=== PATIENT | male | born 2005 | race Two or more races ===

== ENCOUNTER 2025-07-04 09:58 | Inpatient (IN) | payer MEDICAID, OTHER ==
[~2025-07-04] VITALS: Ht 175.3 cm; Wt 76.8 kg
--- NOTE | 2025-07-04 11:03 | ED.PDOC ---
GI ASSESSMENT HPI Comments 19 y.o male with PMHx of asthma, presents to the ED for a chief complain to diffused abdominal pain associated with nausea, vomiting and SOB that started 2 days ago. Patient reports pain is constant and has no alleviating factors. He is requesting an inhaler for SOB. No chest pain, fever, chills, diarrhea reported. He admits to using marijuana occasionally. Chief Complaint: Abdominal Pain Time Seen by MD: 10:47 Reviewed Notes: Nurses Notes, Medications, Allergies Allergies: Coded Allergies: NO KNOWN ALLERGIES (Unverified , 07/04/25) Information Source: Patient Mode of Arrival: Ambulatory Timing: Days (2) Duration: Since onset Quality: Aching Vomitus: Soft Stool: Normal Severity: Moderate Recent: None Recent Hx of: None Pain Location: Diffuse Modifying Factors: Nothing Associated sign and symptoms: Nausea, Vomiting, Abdominal Pain Past Medical History PAST MEDICAL HISTORY: Asthma Surgical History: Denies all surgeries Family History Family History: Reviewed,noncontributory to illness Social History Smoker: Non-Smoker Alcohol: Denies ETOH Use Drugs: Marijuana Lives In: Home Constitutional: denies: chills, diaphoresis, fatigue, fever, malaise, sweats, weakness, others EENTM: denies: blurred vision, double vision, ear bleeding, ear discharge, ear drainage, ear pain, ear ringing, eye pain, eye redness, hearing loss, mouth pain, mouth swelling, nasal discharge, nose bleeding, nose congestion, nose pain, photophobia, tearing, throat pain, throat swelling, voice changes, others Respiratory: reports: shortness of breath; denies: cough, hemoptysis, orthopnea, SOB at rest, SOB with excertion, stridor, wheezing, others Cardiovascular: denies: chest pain, dizzy spells, diaphoresis, Dyspnea on ex ertion, edema, irregular heart beat, left arm pain, lightheadedness, palpitations, PND, syncope, others Gastrointestinal: reports: abdominal pain, nausea, vomiting; denies: abdomen distended, blood streaked bowels, constipated, diarrhea, dysphagia, difficulty swallowing, hematemesis, melena, poor appetite, poor fluid intake, rectal bleeding, rectal pain, others Genitourinary: denies: burning, dysuria, flank pain, frequency, hematuria, incontinence, penile discharge, penile sore, pain, testicle pain, testicle swelling, urgency, others Neurological: denies: dizziness, fainting, headache, left sided numbness, left sided weakness, numbness, paresthesia, pre-existing deficit, right sided numbness, right sided weakness, seizure, speech problems, tingling, tremors, weakness, others Musculoskeletal: denies: back pain, gout, joint pain, joint swelling, muscle pain, muscle stiffness, neck pain, others Integumetry: denies: bruises, change in color, change in hair/nails, dryness, laceration, lesions, lumps, rash, wounds, others Allergic/Immunocompromised: denies: Difficulty Healing, Frequent Infections, Hives, Itching, others Hematologic/Lymphatic: denies: anemia, blood clots, easy bleeding, easy bruising, swollen glands, others Endocrine: denies: excessive hunger, excessive sweating, excessive thirst, excessive urination, flushing, intolerance to cold, intolerance to heat, unexplained weight gain, unexplained weight loss, others Psychiatric: denies: anxiety, bipolar disorder, depression, hopeless, panic disorder, schizophrenia, sleepless, suicidal, others All Other Systems: Reviewed and Negative Physical Exam General Appearance: Moderate Distress HEENT: Normal ENT Inspection, Pharynx Normal, TMs Normal Neck: Full Range of Motion, Non-Tender, Normal, Normal Inspection Respiratory: Chest Non-Tender, Lungs Clear, No Accessory Muscle Use, No Respiratory Distress, Normal Breath Sounds Cardiovascular: No Edema, No JVD, No Murmur, No Gallop, Normal Peripheral Pulses, Regular Rate/Rhythm Breast Exam: Deferred Gastrointestinal: No Organomegaly, Non Tender, No Pulsatile Mass, Normal Bowel Sounds, Soft Genitalia: Deferred Pelvic: Deferred Rectal: Deferred Extremities: No calf tenderness, Normal capillary refill, Normal inspection, Normal range of motion, Non-tender, No pedal edema Musculoskeletal : Apperance: Normal Neurologic: Alert, senior informatica developer II-XII nml as Tested, No Motor Deficits, Normal Affect, Normal Mood, No Sensory Deficits Cerebellar Function: Normal Reflexes: Normal Skin: Dry, Normal Color, Warm Peripheral Pulses: 3+ Radial (R), 3+ Radial (L) Lymphatic: No Adenopathy Was a procedure done? Was a procedure done?: No GI differential Dx Differential Diagnosis: Constipation, Diverticular disease, Esophagitis, Gastritis/PUD, Gastroenteritis, Dehydration, Electrolyte Imbalance, Viral X-Ray, Labs, Meds, VS Vital Signs Date Time Temp Pulse Resp B/P (MAP) Pulse Ox O2 Delivery O2 Flow Rate FiO2 07/04/25 11:13 61 18 100 Room Air 07/04/25 11:13 98.3 62 18 155/88 (110) 98 98.3 07/04/25 09:59 98.0 62 16 151/98 99 98.0 Lab Test 07/04/25 11:20 Range/Units White Blood Count 11.8 H 4.4-10.8 10^3/uL Red Blood Count 5.20 4.5-5.90 10^6/uL Hemoglobin 16.0 13.5-17.5 g/dL Hematocrit 47.0 41.0-53.0 % Mean Corpuscular Volume 90.5 80.0-100.0 fL Mean Corpuscular Hemoglobin 30.7 28.0-32.0 pg Mean Corpuscular Hemoglobin Concent 33.9 32.0-36.0 g/dL Red Cell Distribution Width 13.8 11.8-14.3 % Platelet Count 319 140-450 10^3/uL Mean Platelet Volume 8.7 6.9-10.8 fL Neutrophils (%) (Auto) 86.1 H 37.0-80.0 % Lymphocytes (%) (Auto) 5.3 L 10.0-50.0 % Monocytes (%) (Auto) 8.4 0.0-12.0 % Eosinophils (%) (Auto) 0.0 0.0-7.0 % Basophils (%) (Auto) 0.2 0.0-2.0 % Neutrophils # (Auto) 10.2 H 1.6-8.6 10 ^3/uL Lymphocytes # (Auto) 0.6 0.4-5.4 10 ^3/uL Monocytes # (Auto) 1.0 0-1.3 10 ^3/uL Eosinophils # (Auto) 0 0-0.8 10 ^3/uL Basophils # (Auto) 0 0-0.2 10 ^3/uL Nucleated Red Blood Cells 0.5 % Sodium Level 138 136-145 mmol/L Potassium Level 3.4 L 3.5-5.1 mmol/L Chloride Level 98 98-107 mmol/L Carbon Dioxide Level 26 20-31 mmol/L Anion Gap 14 5-15 Blood Urea Nitrogen 11 9-23 mg/dL Creatinine 1.07 0.700-1.30 mg/dL Glomerular Filtration Rate Calc 103 >90 mL/min BUN/Creatinine Ratio 10.3 10.0-20.0 Serum Glucose 116 H 74-106 mg/dL Calcium Level 10.9 H 8.7-10.4 mg/dL Patient alert. Complaining of abdominal pain. WBC elevated. Hemoglobin within normal limits. Vitals stable. Answering questions. Potassium is low. Calcium is high. Establish intravenous access. Was given fluids. CT scan of the abdomen reviewed does show colitis. Was given Rocephin. Was given Flagyl. Continue to monitor. Time of 1ST Reevaluation: 10:59 Reevaluation 1ST: Unchanged Patient Education/Counseling: Diagnosis, Treatment, Prognosis Family Education/Counseling: No Family Present SEPSIS Sepsis Screen Date sepsis recognized/suspect: Jul 04, 2025 Time Sepsis recognized/suspect: 958 Recent Procedure: No On Antibiotic Therapy: No Respiratory Rate >20: No Heart Rate >90: No Temp<36 C (96.8 F) or >38.3 C: No SBP <90 or MAP <65 mmHG: No New Acute Mental Status Change: No Is the patient on CPAP, BIPAP,: No Physician Orders Ct Ab Pel Wo Con-No Oral Or Iv (07/04/25 12:40) Vital Signs Date Time Temp Pulse Resp B/P (MAP) Pulse Ox O2 Delivery O2 Flow Rate FiO2 07/04/25 11:13 61 18 100 Room Air 07/04/25 11:13 98.3 62 18 155/88 (110) 98 98.3 07/04/25 09:59 98.0 62 16 151/98 99 98.0 Laboratory Tests Test 07/04/25 11:20 White Blood Count 11.8 10^3/uL (4.4-10.8) H Departure 1 Departure Time of Disposition: 12:48 Impression: Primary Impression: Hypokalemia Additional Impressions: Hypercalcemia Non-specific colitis Disposition: ADMITTED INPATIENT Admit to: Med Surg Condition: Guarded Critical Care Note Critical Care Time?: No Stability Stability form required: No I personally scribed for ANGELICA GUTHRIE MD ([email or web address]) on 07/04/25 at 11:03. Electronically submitted by Milagros Browning ([facility]). ANGELCIA GUTHRIE MD Jul 04, 2025 11:03
[2025-07-04 11:58] LABS: Hematocrit 47.0 % (41.0-53.0); Hemoglobin 16.0 g/dL (13.5-17.5); Mean Corpuscular Hemoglobin 30.7 pg (28.0-32.0); Mean Corpuscular Volume 90.5 fL (80.0-100.0); Nucleated Red Blood Cells % 0.5 %
[2025-07-04 12:03] LABS: Chloride 98 mmol/L (98-107); Sodium 138 mmol/L (136-145)
[2025-07-04 12:04] LABS: Anion Gap 14 (5-15); Carbon Dioxide 26 mmol/L (20-31)
[2025-07-04 12:10] LABS: BUN/Creatinine Ratio 10.3 (10.0-20.0); Blood Urea Nitrogen 11 mg/dL (9-23)
[2025-07-04 12:11] LABS: Calcium 10.9 mg/dL (8.7-10.4); Glucose 116 mg/dL (74-106); Potassium 3.4 mmol/L (3.5-5.1)
--- NOTE | 2025-07-04 13:51 | DVH ---
CLINICAL HISTORY: enteritis TECHNIQUE: CT of the abdomen and pelvis was performed without intravenous contrast. This exam was per formed according to our departmental dose optimization program. Up-to-date CT equipment and radiation dose reduction techniques are utilized as appropriate. 7.01 CTDI: 7.01 DLP: 373.71 WID: COMPARISON: None FINDINGS: Lower Thorax: Unremarkable. Liver and Biliary system: Unremarkable. Spleen: Unremarkable. Adrenal Glands and Kidneys: Unremarkable. Pancreas and Retroperitoneum: Unremarkable. Aorta and Major Vessels: Unremarkable. Bowel, Mesentery and Peritoneal space: Normal caliber small and large bowel. There is mild wall thic kening of the large bowel although it is underdistended. Normal appendix. No free air or fluid colle ction. Pelvis: Mild wall thickening of the urinary bladder. The prostate and seminal vesicles are grossly u nremarkable. No pelvic lymphadenopathy. Abdominal wall and Osseous Structures: Unremarkable. IMPRESSION: Mild wall thickening throughout the large bowel which may be in part due to underdistention versus mi ld infectious or inflammatory colitis.
[2025-07-04 14:16] VITALS: PULSE 80; RESP 19; O2SAT 97
[2025-07-04] MEDS: POTASSIUM EFFERVESENT TAB 25 MEQ PO ONE (14:16)
[2025-07-04] MEDS: ONDANSETRON HCL 4 MG/2 ML VIAL IV ONE (14:16)
[2025-07-04] MEDS: SODIUM CHLORIDE 0.9% 1,000 ML IV ONE (14:16)
[2025-07-04] MEDS: HYDROmorphone HCL 2 MG/ML VL/or syr IV ONE (14:17)
--- NOTE | 2025-07-04 16:10 | DVHHP2 ---
History of Present Illness History of Present Illness Patient is a 19-year-old male with no known past medical history came to the hospital with a chief complaint of intractable nausea and vomiting associated with abdominal pain for past two days. Patient had acute onset of abdominal pain two days ago, had at least 15 vomiting episode, vomitus is yellowish in color, food particles, not able to keep any food. As per patient he does not have bowel movement in last 7-10 days, he is suffering from constipation for many years, never seek medical attention for same reason. No any GI intervention done in past. Patient denying any other symptoms including chest pain, shortness of breath, fever, chills, motor or sensory deficits, any other symptoms. Past medical history: Constipation Surgical history: Denies Family history: Noncontributory Social history: Smokes weed, smokes vape. Denying any other recreational drug use. Allergies: Denies Home medication: None Review of Systems Constitutional: No: Fever, Chills, Sweats, Weakness, Malaise, Other ENT: No: Ear pain, Ear discharge, Nose pain, Nose discharge, Nose congestion, Mouth pain, Mouth swelling, Throat pain, Throat swelling, Other Respiratory: No: Cough, Dry, Shortness of breath, SOB with excertion, Wheezing, Hemoptysis, Pleuritic Pain, Sputum, Wheezing, Other Cardiovascular: No: Chest Pain, Palpitations, Orthopnea, Paroxysmal Noc. Dyspnea, Edema, Lt Headedness, Other Gastrointestinal: Nausea, Vomiting, Abdominal Pain Genitourinary: No Dysuria, No Frequency, No Incontinence, No Hematuria, No Retention, No Other Musculoskeletal: No: other, neck pain, shoulder pain, arm pain, back pain, hand pain, leg pain, foot pain Skin: No: Rash, Lesions, Jaundice, Bruising, Other Neurological: No: Weakness, Numbness, Incoordination, Change in speech, Confusion, Seizures, Other Allergies: Coded Allergies: NO KNOWN ALLERGIES (Unverified , 07/04/25) Exam Vital Signs Vital Signs Date Time Temp Pulse Resp B/P (MAP) Pulse Ox O2 Delivery O2 Flow Rate FiO2 07/04/25 15:05 56 17 115/46 (69) 97 07/04/25 14:16 Room Air* 0 21 07/04/25 14:16 98.4 98.4 Exam General Appearance: Cooperative. Well developed. Well nourished. NAD Head Exam: Normal inspection Neck Exam: Normal inspection. Non-tender. Normal alignment Pulmonary/Respiratory: Chest non-tender. Clear bilateral breath sounds Cardiovascular/Chest: Regular rate and rhythm. No murmurs. No JVD. Peripheral Pulses: 2+ Radial (R). 2+ Radial (L). 2+ Pedal (R). 2+ Pedal (L) Abdominal Exam: Normal bowel sounds. Soft. Nontender. No hepatospenomegaly. No masses Ankle Exam: Negative ankle edema Lower extremities: Negative lower extremity edema Neuro/Mental Status: A&O x4. Coherent Thoughts/Psych: Normal thought pattern. Appropriate mood and affect. Good judgement and insight Appearance: In no acute distress Skin Exam: Normal inspection. Normal color. Warm. Dry Labs/Xrays Labs Test 07/04/25 11:20 Range/Units White Blood Count 11.8 H 4.4-10.8 10^3/uL Red Blood Count 5.20 4.5-5.90 10^6/uL Hemoglobin 16.0 13.5-17.5 g/dL Hematocrit 47.0 41.0-53.0 % Mean Corpuscular Volume 90.5 80.0-100.0 fL Mean Corpuscular Hemoglobin 30.7 28.0-32.0 pg Mean Corpuscular Hemoglobin Concent 33.9 32.0-36.0 g/dL Red Cell Distribution Width 13.8 11.8-14.3 % Platelet Count 319 140-450 10^3/uL Mean Platelet Volume 8.7 6.9-10.8 fL Neutrophils (%) (Auto) 86.1 H 37.0-80.0 % Lymphocytes (%) (Auto) 5.3 L 10.0-50.0 % Monocytes (%) (Auto) 8.4 0.0-12.0 % Eosinophils (%) (Auto) 0.0 0.0-7.0 % Basophils (%) (Auto) 0.2 0.0-2.0 % Neutrophils # (Auto) 10.2 H 1.6-8.6 10 ^3/uL Lymphocytes # (Auto) 0.6 0.4-5.4 10 ^3/uL Monocytes # (Auto) 1.0 0-1.3 10 ^3/uL Eosinophils # (Auto) 0 0-0.8 10 ^3/uL Basophils # (Auto) 0 0-0.2 10 ^3/uL Nucleated Red Blood Cells 0.5 % Sodium Level 138 136-145 mmol/L Potassium Level 3.4 L 3.5-5.1 mmol/L Chloride Level 98 98-107 mmol/L Carbon Dioxide Level 26 20-31 mmol/L Anion Gap 14 5-15 Blood Urea Nitrogen 11 9-23 mg/dL Creatinine 1.07 0.700-1.30 mg/dL Glomerular Filtration Rate Calc 103 >90 mL/min BUN/Creatinine Ratio 10.3 10.0-20.0 Serum Glucose 116 H 74-106 mg/dL Calcium Level 10.9 H 8.7-10.4 mg/dL SEPSIS Sepsis Screen Date sepsis recognized/suspect: Jul 04, 2025 Time Sepsis recognized/suspect: 1415 Recent Procedure: No On Antibiotic Therapy: No Respiratory Rate >20: No Heart Rate >90: No Temp<36 C (96.8 F) or >38.3 C: No SBP <90 or MAP <65 mmHG: No New Acute Mental Status Change: No Is the patient on CPAP, BIPAP,: No Physician Orders Ct Ab Pel Wo Con-No Oral Or Iv (07/04/25 12:40) Urinalysis (07/04/25 14:03) Admit (07/04/25 16:06) Code Status (07/04/25 16:06) Vital Signs .PER UNIT PROTOCOL (07/04/25 16:06) Review Orders With Adm. (07/04/25 16:06) Metoclopramide Injection (Reglan Injecti (07/04/25 16:15) Notify Md Of Changes From Base (07/04/25 16:06) Advance Directive (07/04/25 16:06) Patient Condition (07/04/25 16:06) Allergies (07/04/25 16:06) Ondansetron Hcl (Zofran) (07/04/25 16:15) Drug Screen (07/04/25 16:06) Ceftriaxone Ivpb Rocephin (07/05/25 09:00) Metronidazole Ivpb Flagyl (07/04/25 22:00) D5w/Sod Chl 0.45% 1/2 Ns (07/04/25 16:15) Pantoprazole (Protonix) (07/05/25 10:00) Pantoprazole (Protonix) (07/04/25 16:15) Vital Signs Date Time Temp Pulse Resp B/P (MAP) Pulse Ox O2 Delivery O2 Flow Rate FiO2 07/04/25 15:05 56 17 115/46 (69) 97 07/04/25 15:05 56 17 115/46 07/04/25 14:17 80 19 119/65 07/04/25 14:16 80 19 97 Room Air* 0 21 07/04/25 14:16 98.4 80 19 119/65 (83) 97 98.4 07/04/25 11:13 61 18 100 Room Air 07/04/25 11:13 98.3 62 18 155/88 (110) 98 98.3 07/04/25 09:59 98.0 62 16 151/98 99 98.0 Laboratory Tests Test 07/04/25 11:20 White Blood Count 11.8 10^3/uL (4.4-10.8) H Medications Medications Dose Ordered Sig/Tyree Route Start Time Stop Time Status Last Admin Dose Admin Ceftriaxone Sodium 50 ml @ 100 mls/hr ONCE ONCE IV 07/04/25 14:15 07/04/25 14:44 DC 07/04/25 14:16 100 MLS/HR Hydromorphone HCl 1 mg ONCE ONCE IV 07/04/25 14:15 07/04/25 14:16 DC 07/04/25 14:17 1 MG Metronidazole 100 ml @ 100 mls/hr ONCE ONCE IV 07/04/25 14:15 07/04/25 15:14 DC 07/04/25 14:55 100 MLS/HR Ondansetron HCl 4 mg ONCE ONCE IV 07/04/25 14:15 07/04/25 14:16 DC 07/04/25 14:16 4 MG Potassium Bicarbonate 25 meq ONCE ONCE PO 07/04/25 13:00 07/04/25 13:01 DC 07/04/25 14:16 25 MEQ Sodium Chloride 1,000 ml @ 1,000 mls/hr Q1H ONCE IV 07/04/25 13:00 07/04/25 13:59 DC 07/04/25 14:16 1,000 MLS/HR Assessment/Plan Assessment/Plan Acute colitis Intractable nausea and vomiting due to above Intractable abdominal pain due to acute colitis Hypokalemia Elevated calcium likely due to severe dehydration Hyperglycemia Plan/recommendation -IV antibiotic with ceftriaxone, metronidazole -CT abdominal pelvis:Mild wall thickening throughout the large bowel which may be in part due to underdistention versus mild infectious or inflammatory colitis. -IV fluid with D5 half NS 125 mL/hour -p.r.n. ondansetron and metronidazole for nausea and vomiting -check liver function, IBD panel, urine drug screen. Continue to monitor electrolytes. -bowel regimen for constipation. Clear liquid diet. -PUD prophylaxis with Protonix Goals of care discussed greater than 24 minutes, full code status. Plan discussed with Dr. Singh Plan discussed with: Patient, Other My Orders Orders - CONNOR JARQUIN Procedure Category Date Status Time Admit ADMIT 07/04/25 Verified 16:06 Code Status CODE 07/04/25 Verified 16:06 Vital Signs [facility] 07/04/25 Verified 16:06 Review Orders With [facility] 07/04/25 Verified Adm. 16:06 Metoclopramide [facility] 07/04/25 Verified Injection (Reglan 16:15 Notify Md Of Changes [facility] 07/04/25 Verified From Base 16:06 Advance Directive [facility] 07/04/25 Verified 16:06 Patient Condition ORDERS 07/04/25 Verified 16:06 Allergies [facility] 07/04/25 Verified 16:06 Ondansetron Hcl [facility] 07/04/25 Verified (Zofran) 16:15 Drug Screen LAB 07/04/25 Verified 16:06 Ceftriaxone Ivpb [facility] 07/05/25 Verified Rocephin 09:00 Metronidazole Ivpb [facility] 07/04/25 Verified Flagyl 22:00 D5w/Sod Chl 0.45% 1/2 PHA 07/04/25 Verified NS 16:15 Pantoprazole PHA 07/05/25 Verified (Protonix) 10:00 Pantoprazole [facility] 07/04/25 Verified (Protonix) 16:15 Date of Service: Jul 04, 2025 Billing Provider: GLORIA SINGH MD Common Visit Codes: [id number] INP/OBS CARE (HIGH) Secondary Visit Codes: [id number] CARE PLAN 30 MINUTES CONNOR JARQUIN RESIDENT Jul 04, 2025 16:10
[2025-07-04 16:38] LABS: Urine Protein, UAD 1+ (Negative)
[2025-07-04 16:47] LABS: Cannabinoid Screen, Urine Pos (NEGATIVE); Opiate Scree,Urine Neg (NEGATIVE)
[2025-07-04 16:54] LABS: Amphetamine Screen, Urine Neg (NEGATIVE); Barbiturate Scree,Urine Neg (NEGATIVE); Benzodiazephine Screen, Urine Neg (NEGATIVE); Cocaine Screen, Urine Neg (NEGATIVE); Phencyclidine Screen, Urine Neg (NEGATIVE)
[2025-07-04 17:16] LABS: Alanine Aminotransferase 18.0 U/L (7-40); Alkaline Phosphatase 87.0 U/L (46-116); Bilirubin, Total 1.0 mg/dL (0.2-1.0)
[2025-07-04 17:17] VITALS: BP 108/40; PULSE 53; RESP 14; TEMP 98.3; O2SAT 99
[2025-07-04] MEDS: D5W/SOD CHL 0.45% 1,000 ML IV SCH (19:06)
[2025-07-04] MEDS: LACTULOSE 20Gm/30ML SOLN PO ONE (19:06)
[2025-07-04] MEDS: POTASSIUM CHL 20MEQ/100ML 100 ML IV ONE (19:06)
[2025-07-04] MEDS: PANTOPRAZOLE 40 MG/10 ML VIAL INJ IV ONE (19:07)
[2025-07-04 21:00] VITALS: BP 108/32; PULSE 78; RESP 16; TEMP 98.6; O2SAT 97
[2025-07-04] MEDS: DOCUSATE SOD 100 MG CAP PO SCH (21:42)
[2025-07-05] MEDS: ONDANSETRON HCL 4 MG/2 ML VIAL IV PRN (01:00)
[2025-07-05 01:03] VITALS: BP 109/51; PULSE 58; RESP 16; TEMP 98.7; O2SAT 100
[2025-07-05 05:00] VITALS: BP 112/61; PULSE 53; RESP 16; TEMP 98.2; O2SAT 99
[2025-07-05 05:39] LABS: Hematocrit 41.7 % (41.0-53.0); Hemoglobin 14.4 g/dL (13.5-17.5); Mean Corpuscular Hemoglobin 31.3 pg (28.0-32.0); Mean Corpuscular Volume 90.6 fL (80.0-100.0); Nucleated Red Blood Cells % 0.1 %
[2025-07-05 05:53] LABS: Chloride 104 mmol/L (98-107); Potassium 3.8 mmol/L (3.5-5.1); Sodium 142 mmol/L (136-145)
[2025-07-05 05:54] LABS: Anion Gap 10 (5-15); Carbon Dioxide 28 mmol/L (20-31)
[2025-07-05 05:55] LABS: Calcium 9.4 mg/dL (8.7-10.4)
[2025-07-05 06:00] LABS: BUN/Creatinine Ratio 8.7 (10.0-20.0); Glucose 102 mg/dL (74-106)
[2025-07-05 06:02] LABS: Blood Urea Nitrogen 9 mg/dL (9-23)
[2025-07-05] MEDS: PANTOPRAZOLE 40 MG/10 ML VIAL INJ IV SCH (08:18)
[2025-07-05 09:05] VITALS: BP 134/63; PULSE 56; RESP 16; TEMP 98.4; O2SAT 100
[2025-07-05] MEDS ORDERED: ACETAMINOPHEN 325 MG TAB PO PRN (12:00)
--- NOTE | 2025-07-05 12:05 | DVHPN2 ---
Progress Note Date Seen: Jul 05, 2025 Medical Necessity Reason Pt with a Central, PICC or Fol: No Subjective Patient reports: No new complaints Review of Systems: HEENT:Normal, CVS:Normal, RESPIRATORY:Normal, GI:Normal, :Normal, MSK:Normal, NEURO:Normal Objective vital signs Vital Sign Date Time Temp Pulse Resp B/P (MAP) Pulse Ox O2 Delivery O2 Flow Rate FiO2 07/05/25 09:05 98.4 56 16 134/63 (86) 100 98.4 07/04/25 17:18 Room Air* 0 21 Total Intake and Output 07/04/25 07/04/25 07/05/25 15:00 23:00 07:00 Intake Total 50 ml 1200 ml 580 ml Balance 50 ml 1200 ml 580 ml medications Current Medications Medications Dose Ordered Sig/Tyree Route Start Time Stop Time Status Last Admin Dose Admin Metoclopramide HCl 10 mg Q4HP PRN IV 07/04/25 16:15 Ondansetron HCl 4 mg Q4HP PRN IV 07/04/25 16:15 07/05/25 08:10 4 MG Ceftriaxone Sodium 50 ml @ 100 mls/hr DAILY@09 IV 07/05/25 09:00 07/05/25 08:18 100 MLS/HR Metronidazole 100 ml @ 100 mls/hr Q8HR IV 07/04/25 22:00 07/05/25 05:28 100 MLS/HR Dextrose/Sodium Chloride 1,000 ml @ 125 mls/hr Q8H IV 07/04/25 16:15 07/05/25 04:12 125 MLS/HR Pantoprazole Sodium 40 mg DAILY IV 07/05/25 10:00 07/05/25 08:18 40 MG Docusate Sodium 100 mg BID PO 07/04/25 22:00 07/05/25 08:14 100 MG Examination: GENERAL:Normal, HEENT:Normal, NECK:Normal, LUNGS:Normal, CVS:Normal, ABDOMEN:Normal, MSK:Normal, SKIN:Normal, NEURO:Normal, :Normal laboratory and microbiology Laboratory Tests 07/05/25 05:19 Test 07/05/25 05:19 Range/Units Serum Glucose 102 74-106 mg/dL Problem List/Assessment/Plan Problem List/Assessment/Plan #1 abd pain ? cannabis hyperemesis: ivf, ppi, pain meds Plan discussed with: Patient My Orders My Orders Orders - CARIE ALONZO MD Procedure Category Date Status Time Hydromorphone PHA 07/05/25 Verified Injection (Dilaudid 12:00 Hydrocodone-Acet PHA 07/05/25 Verified 5/325mg Tab ([place] 12:00 Acetaminophen Tablet PHA 07/05/25 Verified (Tylenol Tablet) 12:00 Prochlorperazine Inj PHA 07/05/25 Verified (Compazine Inj) 12:00 Basic Metabolic Panel LAB 07/06/25 Verified 06:00 Complete Blood Count LAB 07/06/25 Verified 06:00 Magnesium LAB 07/06/25 Verified 05:00 Date of Service: Jul 05, 2025 Billing Provider: CARIE ALONOZ MD Common Visit Codes: [id number] INP/OBS CARE(HIGH) CARIE ALONZO MD Jul 05, 2025 12:05
[2025-07-05] MEDS: HYDROmorphone HCL 2 MG/ML VL/or syr IV PRN (12:50)
[2025-07-05] MEDS: METOCLOPRAMIDE HCL 5MG/ml INJ 2ml VIAL IV PRN (12:54)
[2025-07-05] MEDS: PROCHLORPERAZINE EDISYLATE 5 MG/ML 2ML VIAL IM ONE (13:00)
[2025-07-05 17:00] VITALS: BP 98/41; PULSE 67; RESP 18; TEMP 97.8; O2SAT 96
[2025-07-05 20:00] VITALS: PULSE 60; O2SAT 97
[2025-07-05 21:00] VITALS: BP 107/57; PULSE 51; RESP 16; TEMP 98.5; O2SAT 97
[2025-07-05] MEDS: HYDROcodone-ACET 5/325MG TAB PO PRN (21:59)
[2025-07-06 01:00] VITALS: BP 106/40; PULSE 54; RESP 16; TEMP 98.7; O2SAT 97
[2025-07-06 05:00] VITALS: BP 123/71; PULSE 52; RESP 16; TEMP 98.3; O2SAT 98
[2025-07-06 06:45] LABS: Hematocrit 40.4 % (41.0-53.0); Hemoglobin 13.8 g/dL (13.5-17.5); Mean Corpuscular Hemoglobin 30.9 pg (28.0-32.0); Mean Corpuscular Volume 90.5 fL (80.0-100.0); Nucleated Red Blood Cells % 0.1 %
[2025-07-06 06:55] LABS: Calcium 9.1 mg/dL (8.7-10.4); Chloride 104 mmol/L (98-107); Sodium 142 mmol/L (136-145)
[2025-07-06 06:56] LABS: Anion Gap 11 (5-15); Carbon Dioxide 27 mmol/L (20-31)
[2025-07-06 06:57] LABS: Potassium 3.4 mmol/L (3.5-5.1)
[2025-07-06 07:01] LABS: BUN/Creatinine Ratio 5.3 (10.0-20.0); Glucose 91 mg/dL (74-106)
[2025-07-06 07:02] LABS: Magnesium 2.0 mg/dL (1.6-2.6)
[2025-07-06 07:16] LABS: Blood Urea Nitrogen 5 mg/dL (9-23)
[2025-07-06 09:00] VITALS: BP 104/55; PULSE 47; RESP 17; TEMP 98.2; O2SAT 99
--- NOTE | 2025-07-06 11:10 | DVHPN2 ---
Progress Note Date Seen: Jul 06, 2025 Medical Necessity Reason Pt with a Central, PICC or Fol: No Subjective Patient reports: No new complaints Review of Systems: HEENT:Normal, CVS:Normal, RESPIRATORY:Normal, GI:Normal, :Normal, MSK:Normal, NEURO:Normal Objective vital signs Vital Sign Date Time Temp Pulse Resp B/P (MAP) Pulse Ox O2 Delivery O2 Flow Rate FiO2 07/06/25 09:00 98.2 47 17 104/55 (71) 99 98.2 07/06/25 08:05 Room Air* 0 21 Total Intake and Output 07/05/25 07/05/25 07/06/25 15:00 23:00 07:00 Intake Total 300 ml 680 ml Balance 300 ml 680 ml medications Current Medications Medications Dose Ordered Sig/Tyree Route Start Time Stop Time Status Last Admin Dose Admin Metoclopramide HCl 10 mg Q4HP PRN IV 07/04/25 16:15 07/05/25 12:54 10 MG Dextrose/Sodium Chloride 1,000 ml @ 125 mls/hr Q8H IV 07/04/25 16:15 07/06/25 08:29 125 MLS/HR Pantoprazole Sodium 40 mg DAILY IV 07/05/25 10:00 07/06/25 09:21 40 MG Docusate Sodium 100 mg BID PO 07/04/25 22:00 07/06/25 09:21 100 MG Hydromorphone HCl 0.5 mg Q4HPRN PRN IV 07/05/25 12:00 07/05/25 12:50 0.5 MG Acetaminophen/ Hydrocodone Bitart 1 tab Q6HPRN PRN PO 07/05/25 12:00 07/05/25 21:59 1 TAB Acetaminophen 650 mg Q6HP PRN PO 07/05/25 12:00 Examination: GENERAL:Normal, HEENT:Normal, NECK:Normal, LUNGS:Normal, CVS:Normal, ABDOMEN:Normal, MSK:Normal, SKIN:Normal, NEURO:Normal, :Normal laboratory and microbiology Laboratory Tests 07/06/25 05:00 Test 07/06/25 05:00 Range/Units Serum Glucose 91 74-106 mg/dL Problem List/Assessment/Plan Problem List/Assessment/Plan #1 abd pain ? cannabis hyperemesis: ivf, ppi, pain meds, advance diet #2 homeless: social service consult Plan discussed with: Patient My Orders My Orders Orders - CARIE ALONZO MD Procedure Category Date Status Time Hydromorphone PHA 07/05/25 In Process Injection (Dilaudid 12:00 Hydrocodone-Acet PHA 07/05/25 In Process 5/325mg Tab ([place] 12:00 Acetaminophen Tablet PHA 07/05/25 In Process (Tylenol Tablet) 12:00 Full Liq Diet DIET 07/05/25 Transmitted Lunch Date of Service: Jul 06, 2025 Billing Provider: CARIE ALONZO MD Common Visit Codes: [id number] INP/OBS CARE(HIGH) CARIE ALONZO MD Jul 06, 2025 11:10
[2025-07-06] MEDS ORDERED: HYDROmorphone HCL 2 MG/ML VL/or syr IV PRN (11:15)
[2025-07-06] MEDS: D5W/SOD CHL 0.45% 1,000 ML IV SCH (11:30)
[2025-07-06] MEDS: POTASSIUM CHL 20 Meq TABLET PO ONE (12:03)
[2025-07-06] MEDS: AZITHROMYCIN 250 MG TAB PO ONE (12:03)
[2025-07-06 13:00] VITALS: BP 133/80; PULSE 56; RESP 18; TEMP 98.1; O2SAT 98
[2025-07-06 17:00] VITALS: BP 137/88; PULSE 52; RESP 18; TEMP 98.4; O2SAT 100
[2025-07-06 21:00] VITALS: BP 130/89; PULSE 75; RESP 16; TEMP 98.5; O2SAT 97
[2025-07-07 01:00] VITALS: BP 111/63; PULSE 51; RESP 16; TEMP 98.2; O2SAT 97
[2025-07-07 05:00] VITALS: BP 120/73; PULSE 50; RESP 16; TEMP 98.4; O2SAT 97
[2025-07-07 09:00] VITALS: BP 109/62; PULSE 65; RESP 17; TEMP 98.4; O2SAT 99
[2025-07-07] MEDS: AZITHROMYCIN 250 MG TAB PO SCH (09:30)
--- NOTE | 2025-07-07 11:29 | DVHDS2 ---
Discharge Summary Date of Admission Jul 04, 2025 at 16:06 Date of Discharge: Jul 07, 2025 Labs/Diagnostic Data: Laboratory Results Test 07/06/25 05:00 07/04/25 14:29 07/04/25 11:20 White Blood Count 7.2 10^3/uL (4.4-10.8) Red Blood Count 4.46 10^6/uL (4.5-5.90) Hemoglobin 13.8 g/dL (13.5-17.5) Hematocrit 40.4 % (41.0-53.0) Mean Corpuscular Volume 90.5 fL (80.0-100.0) Mean Corpuscular Hemoglobin 30.9 pg (28.0-32.0) Mean Corpuscular Hemoglobin Concent 34.1 g/dL (32.0-36.0) Red Cell Distribution Width 14.0 % (11.8-14.3) Platelet Count 206 10^3/uL (140-450) Mean Platelet Volume 8.6 fL (6.9-10.8) Neutrophils (%) (Auto) 70.4 % (37.0-80.0) Lymphocytes (%) (Auto) 16.4 % (10.0-50.0) Monocytes (%) (Auto) 11.3 % (0.0-12.0) Eosinophils (%) (Auto) 1.6 % (0.0-7.0) Basophils (%) (Auto) 0.3 % (0.0-2.0) Neutrophils # (Auto) 5.0 10 ^3/uL (1.6-8.6) Lymphocytes # (Auto) 1.2 10 ^3/uL (0.4-5.4) Monocytes # (Auto) 0.8 10 ^3/uL (0-1.3) Eosinophils # (Auto) 0.1 10 ^3/uL (0-0.8) Basophils # (Auto) 0 10 ^3/uL (0-0.2) Nucleated Red Blood Cells 0.1 % Sodium Level 142 mmol/L (136-145) Potassium Level 3.4 mmol/L (3.5-5.1) Chloride Level 104 mmol/L (98-107) Carbon Dioxide Level 27 mmol/L (20-31) Anion Gap 11 (5-15) Blood Urea Nitrogen 5 mg/dL (9-23) Creatinine 0.94 mg/dL (0.700-1.30) Glomerular Filtration Rate Calc 120 mL/min (>90) BUN/Creatinine Ratio 5.3 (10.0-20.0) Serum Glucose 91 mg/dL (74-106) Calcium Level 9.1 mg/dL (8.7-10.4) Magnesium Level 2.0 mg/dL (1.6-2.6) Urine Color Yellow (Yellow) Urine Clarity Clear (Clear) Urine pH 6.0 (5.0-9.0) Urine Specific [place] 1.030 (1.001-1.035) Urine Protein 1+ (Negative) Urine Ketones 4+ (Negative) Urine Blood Negative /uL (Negative) Urine Nitrite Negative (Negative) Urine Bilirubin Negative (Negative) Urine Urobilinogen Normal mg/dL (Negative) Urine Leukocyte Esterase Negative /uL (Negative) Urine RBC 1 /hpf (0 - 3) Urine Microscopic WBC 3 /HPF (0-3) Urine Squamous Epithelial Cells None seen /hpf (<5) Urine Bacteria None seen /hpf (None Seen) Urine Mucus Few (None Seen) Urine Glucose Normal mg/dL (Normal) Urine Opiates Screen Neg (NEGATIVE) Urine Fentanyl Screen Neg (NEGATIVE) Urine Barbiturates Screen Neg (NEGATIVE) Urine Phencyclidine Screen Neg (NEGATIVE) Urine Amphetamines Screen Neg (NEGATIVE) Urine Benzodiazepines Screen Neg (NEGATIVE) Urine Cocaine Screen Neg (NEGATIVE) Urine Cannabinoids Screen Pos (NEGATIVE) Total Bilirubin 1.0 mg/dL (0.2-1.0) Aspartate Amino Transferase (AST) 24 U/L (13-40) Alanine Aminotransferase (ALT) 18 U/L (7-40) Alkaline Phosphatase 87 U/L (46-116) Lipase 32 U/L (12-53) Other Laboratory Tests 07/06/25 05:00 Brief Hx & Hospital Course: see dictated note Condition at Discharge: Good Final Diagnosis/Problems List abd pain Discharge Disposition: Home Discharge Instruct/Medications Diet: Regular Activity: No Restrictions, As Tolerated Follow Up/Referral: dano rojas pcp Medications: resume home meds Discharge Statement: "Patient was advised to return to the ER or call 911 if any headaches, dizziness, shortness of breath, chest pain, abdominal pain, bleeding, fevers, or worsening of medical condition. Patient was counseled about treatment plan, medications, possible side effects, patientverbalized understanding. All questions were answered to the best of my ability. This discharge took greater then 30 minutes in planning, reviewing documentation, counseling the patient, and discussing with other team members." ASSESSMENT ASSESSMENT Assessment abd pain Date of Service: Jul 07, 2025 Billing Provider: CARIE ALONZO MD Common Visit Codes: 61040-KZI/OBS DISCH DAY >30min CARIE ALONZO MD Jul 07, 2025 11:29
--- NOTE | 2025-07-07 11:54 | DVHDS ---
DATE OF DISCHARGE: 07/07/2025 HISTORY OF PRESENT ILLNESS: The patient is a 19-year-old gentleman who is admitted with a history of intractable nausea and vomiting. HOSPITAL COURSE: The patient had a CT of abdomen and pelvis that showed evidence of mild thickening of the large bowel wall. The patient was positive for cannabis. He was hypokalemic. The patient has now improved in his symptoms and is tolerating oral diet. He will be discharged home. He has been strongly advised to quit cannabis abuse. FINAL DIAGNOSES: * Abdominal pain, likely secondary to cannabis hyperemesis syndrome. * Homelessness. The patient has also been seen by medical social worker and been given resources. Time spent in discharge planning and review of plan with the patient, medical social worker and nursing was 38 minutes. MD TIRSO Parrish/PENELOPE TID: [id number] RECEIPT: [id number]
[2025-07-07 12:02] VITALS: BP 109/62; PULSE 65; RESP 17; TEMP 36.9
[2025-07-07] MEDS: DOCUSATE SOD 100 MG CAP PO ONE (12:33)
[2025-07-07] MEDS: LACTULOSE 20Gm/30ML SOLN PO ONE (12:34)
[2025-07-07 13:00] VITALS: BP 147/88; PULSE 63; RESP 17; TEMP 98.4; O2SAT 91
== END 2025-07-07 14:27 | disposition home or self-care (01) | DRG 249 ==
LOC: ER 09:58 → OVERFLOW 16:06 → WEST WING 07-05 13:02
PROVIDERS: ADMIT Internal Medicine; ATTEND Internal Medicine
DX: R11.16 Cannabis hyperemesis syndrome (principal); Z59.00 Homelessness unspecified; F12.10 Cannabis abuse, uncomplicated; J45.909 Unspecified asthma, uncomplicated; E83.52 Hypercalcemia; E87.6 Hypokalemia; K59.00 Constipation, unspecified; R73.9 Hyperglycemia, unspecified
CPT/HCPCS: 36415; 74176; 80048; 80307; 81001; 82247; 83690; 83735; 84075; 84450; 84460; 85025; 96365; 96367; 96375; G0378; J2405; J2470; J3480; J3490